=== PATIENT | male | born 1955 | race Caucasian/White ===

== ENCOUNTER 2021-09-01 17:30 | Outpatient (CLI) | payer OTHER | END 2021-09-01 17:31 | disposition home or self-care (01) | LOC: SLEEPLAB 17:30 | PROVIDERS: ATTEND Internal Medicine | DX: G47.33 Obstructive sleep apnea (adult) (pediatric) (principal); R53.83 Other fatigue; R51.9 Headache, unspecified; R06.83 Snoring; G47.00 Insomnia, unspecified; J30.2 Other seasonal allergic rhinitis; G47.31 Primary central sleep apnea | CPT/HCPCS: 95806 ==

== ENCOUNTER 2021-09-17 19:00 | Outpatient (CLI) | payer OTHER | END 2021-09-17 19:01 | disposition home or self-care (01) | LOC: SLEEPLAB 19:00 | PROVIDERS: ATTEND Internal Medicine | DX: G47.33 Obstructive sleep apnea (adult) (pediatric) (principal); R53.83 Other fatigue; R51.9 Headache, unspecified; R06.83 Snoring; G47.10 Hypersomnia, unspecified; E66.9 Obesity, unspecified; Z68.30 Body mass index [BMI] 30.0-30.9, adult | CPT/HCPCS: 95811 ==

== ENCOUNTER 2022-11-12 15:24 | Outpatient (CLI) | payer OTHER, MEDICARE | END 2022-11-12 15:25 | disposition home or self-care (01) | LOC: SCSRAD 15:24 | PROVIDERS: ATTEND Internal Medicine Rheumatology | DX: M25.561 Pain in right knee (principal); M25.562 Pain in left knee; M54.50 Low back pain, unspecified; M54.6 Pain in thoracic spine; M47.814 Spondylosis without myelopathy or radiculopathy, thoracic region; M47.816 Spondylosis without myelopathy or radiculopathy, lumbar region; M47.817 Spondylosis without myelopathy or radiculopathy, lumbosacral region; M17.12 Unilateral primary osteoarthritis, left knee | CPT/HCPCS: 72072; 72100 ==

== ENCOUNTER 2022-12-08 15:54 | Outpatient (CLI) | payer OTHER, MEDICARE | END 2022-12-08 15:55 | disposition home or self-care (01) | LOC: SCSRAD 15:54 | PROVIDERS: ATTEND Internal Medicine Rheumatology | DX: M46.1 Sacroiliitis, not elsewhere classified (principal); Z15.89 Genetic susceptibility to other disease; M16.0 Bilateral primary osteoarthritis of hip | CPT/HCPCS: 72202 ==